=== PATIENT | female | born 1950 | race Caucasian/White ===

== ENCOUNTER 2016-10-25 16:33 | Emergency (ER) | payer OTHER ==
--- NOTE | ~2016-10-25 | CR72 ---
[facility] A Service of [facility] & [facility] RADIOLOGY TEXT RESULTS PATIENT: JULIA BRISCOE LOCATION: [facility] : 52 UNIT #: [id number] AGE: [address]: Sandip Hernández MD SEX: F ORDER DR: [id number] [facility] [address] [place], [place] [address] [id number] E MR#: [id number] Acc #: [id number] NAME: JULIA BRISCOE : 1950 SEX: F STUDY DATE/TIME: 10/25/2016 18:33 UNIT: [facility] ROOM: STUDY DESCRIPTION: CR Chest Single View Portable Attending Physician: Sandip Hernández M.D. Ordering Physician: Sandip Hernández M.D. Primary Care Physician: Primary Care Physician No MEDICAL IMAGING REPORT This report is preliminary unless electronic signature is present EXAM Portable chest HISTORY Respiratory failure. ETT placement FINDINGS ETT tip is 2.5 cm above the jose. Cardiac size and pulmonary vascularity are normal. No focal infiltrates. Calcified mediastinal nodes and mild pleural thickening in the lung apices. Dictated by... Oscar Schrader M.D. THIS IS AN ELECTRONICALLY VERIFIED REPORT Oscar Schrader M.D. at 10/26/2016 1:48 PM DFL/psc TD: 10/25/2016 23:04 JOB #: [id number] MEDICAL IMAGING REPORT Page 1 of 1 COPY
--- NOTE | ~2016-10-25 | CT71 ---
[facility] A Service of [facility] & [facility] RADIOLOGY TEXT RESULTS PATIENT: JULIA BRISCOE LOCATION: [facility] : 52 UNIT #: [id number] AGE: [address]: Sandip Hernández MD SEX: F ORDER DR: [id number] [facility] [address] [place], [place] [address] [id number] E MR#: [id number] Acc #: [id number] NAME: JULIA BRISCOE : 1950 SEX: F STUDY DATE/TIME: 10/25/2016 16:37 UNIT: [facility] ROOM: STUDY DESCRIPTION: CT Head Wo Contrast Attending Physician: Sandip Hernández M.D. Ordering Physician: Sandip Hernández M.D. Primary Care Physician: Primary Care Physician No MEDICAL IMAGING REPORT This report is preliminary unless electronic signature is present EXAM CT head without IV contrast COMPARISON December 25, 2015 INDICATIONS 66-year-old female found unresponsive today with hypotension. TECHNIQUE Axial CT imaging of the head was performed. This CT exam was performed with one or more of the following radiation dose reduction techniques: Automatic exposure control, adjustment of mA and/or kV according to patient size, and iterative reconstruction. FINDINGS Mastoid air cells, middle ears and visualized paranasal sinuses are well aerated. There is a healed fracture of the left frontal bone just above the left orbit, stable. There is mild cerebral and cerebellar volume loss. There appears to be increased hyperdensity along the sulci of the high parietal lobes anteriorly and bilaterally. Early small subarachnoid hemorrhage cannot be excluded. In the right cerebellar hemisphere, extending from the white matter and possibly involving the cortex, there appears to be a hyperdense lesion which was not appreciated previously measuring up to approximately 2.2 cm x 2.4 cm. This could represent intraparenchymal hemorrhage or possibly metastasis, or other neoplasm. There does appear to be mild mass effect in this location which appears new from November 2015. The fourth ventricle and perimesencephalic cisterns remain patent. The suprasellar cistern and other ventricles are patent. IMPRESSION 1. Apparent new hyperdensity along the sulci of the high bilateral anterior frontal lobes suggestive of early subarachnoid hemorrhage. [facility] A Service of [facility] & [facility] RADIOLOGY TEXT RESULTS PATIENT: JULIA BRISCOE LOCATION: [facility] : 52 UNIT #: [id number] AGE: [address]: Sandip Hernández MD SEX: F ORDER DR: 2. Hyperdense lesion in the right cerebellum involving the white matter and possibly extending to involve the cortex, measuring 2.2 cm x 2.4 cm. This appears to be having new mass effect on the adjacent extraaxial space. The fourth ventricle remains patent and the other ventricles are widely patent without midline shift. This could represent a metastasis or possibly a focal intraparenchymal hemorrhagic stroke. Given this finding and the findings over the parietal sulci, MRI brain with and without IV contrast is recommended for further characterization. Dictated by... Slava Gonzalez M.D. THIS IS AN ELECTRONICALLY VERIFIED REPORT Slava Gonzalez M.D. at 10/29/2016 8:29 AM CHAD/marlyn TD: 10/25/2016 20:49 JOB #: [id number] MEDICAL IMAGING REPORT Page 1 of 1 COPY
--- NOTE | ~2016-10-25 | CR72 ---
[facility] A Service of [facility] & [facility] RADIOLOGY TEXT RESULTS PATIENT: JULIA BRISCOE LOCATION: [facility] : 52 UNIT #: [id number] AGE: [address]: Sandip Hernández MD SEX: F ORDER DR: [id number] [facility] [address] [place], [place] [address] [id number] E MR#: [id number] Acc #: [id number] NAME: JULIA BRISCOE : 1950 SEX: F STUDY DATE/TIME: 10/25/2016 16:17 UNIT: [facility] ROOM: STUDY DESCRIPTION: CR Chest Single View Portable Attending Physician: Sandip Hernández M.D. Ordering Physician: Sandip Hernández M.D. Primary Care Physician: Primary Care Physician No MEDICAL IMAGING REPORT This report is preliminary unless electronic signature is present EXAM Portable chest HISTORY Shortness of air and hypotension today. FINDINGS Cardiac size and pulmonary vascularity are normal. No infiltrates or effusions. Mild left upper thoracic curve. Calcified mediastinal and right hilar nodes. Small, calcified granulomas in the right lower lung. IMPRESSION No acute findings and no active disease. No focal infiltrates. Dictated by... Oscar Schrader M.D. THIS IS AN ELECTRONICALLY VERIFIED REPORT Oscar Schrader M.D. at 10/25/2016 10:59 PM DFL/psc TD: 10/25/2016 19:45 JOB #: [id number] MEDICAL IMAGING REPORT Page 1 of 1 COPY
--- NOTE | ~2016-10-25 | EKG ---
PATIENT: JULIA BRISCOE UNIT #: [id number] Ventricular Rate: 110 BPM Atrial Rate: 110 BPM P-R Interval: 136 ms QRS Duration: 62 ms Q-T Interval: 344 ms QTC Calculation(Bezet): 465 ms P [place]: 69 degrees Calculated R [place]: -59 degrees Calculated T [place]: 57 degrees Diagnosis Line: Sinus tachycardia Diagnosis Line: Left axis deviation Diagnosis Line: Pulmonary disease pattern Diagnosis Line: Left ventricular hypertrophy Diagnosis Line: Abnormal ECG Diagnosis Line: When compared with ECG of 21-FEB-2016 12:47, Diagnosis Line: Nonspecific T wave abnormality, improved in Diagnosis Line: Anterolateral leads Diagnosis Line: Confirmed by DOMINGO DORMAN MD ([id number]) on 10/25/2016 Diagnosis Line: 10:57:05 PM INTERPRETING MD: LAKIA HAM
[2016-10-25 16:25] LABS: URINE SOURCE CLEAN CATCH
[2016-10-25 16:29] LABS: URINE APPEARANCE CLOUDY; URINE BLOOD 3+ (NEG); URINE COLOR DK YELLOW; URINE GLUCOSE NEG (NEG); URINE KETONE TRACE (NEG); URINE LEUKOCYTE ESTERASE TRACE (NEG); URINE NITRATE NEG (NEG); URINE PROTEIN 3+ (NEG); URINE SPECIFIC GRAVITY 1.025 (1.003-1.035)
[2016-10-25 16:32] LABS: URINE BACTERIA AUWI NEG (NEGATIVE); URINE SQUAMOUS EPITHELIAL CELL OCC /[HPF]; UWBCS1 AUWI 0-2 (0-5)
[~2016-10-25 16:33] MED LIST: ANTI-DIARRHEAL2 M1 PO; OXYCODONE HCL10 MG PO; PHENERGAN25 M1 PO; SYNTHROID88 MCG PO; XANAX2 MG PO
[2016-10-25 16:36] LABS: POC - CKMB 11.6 ng/mL (0.0-7.9); POC - TROPONIN <0.05 ng/mL (<=0.05)
[2016-10-25 16:36] LABS: BASOPHIL# 0.1 X10e3 (0-0.3); BASOPHIL% 0.4 % (0-2.5); HEMATOCRIT 46.9 % (35.0-45.0); HEMOGLOBIN 15.5 gm/dL (12.0-16.0); LYMPHOCYTE# 1.3 X10e3 (1.0-3.5); LYMPHOCYTE% 5.9 % (17.0-45.0); MEAN CELL VOLUME 95.1 FL (83-96); MEAN CORPUSCULAR HEMOGLOBIN 31.4 PG (28-34); MEAN PLATELET VOLUME 10.3 FL (6.5-11.5); MONOCYTE# 2.7 X10e3 (0-1.0); MONOCYTE% 12.2 % (3.0-12.0); NEUTROPHIL# 18.3 X10e3 (1.5-7.1); NEUTROPHIL% 81.5 % (40-75); PLATELET COUNT 148 X10e3 (140-420); RED BLOOD COUNT 4.93 X10e (3.90-5.30); RED CELL DISTRIBUTION WIDTH 18.6 % (11.0-15.5); WHITE BLOOD COUNT 22.5 X10e3 (4.0-10.5)
[2016-10-25 16:38] LABS: DIFF IND YES
[2016-10-25 16:42] LABS: INR 1.5; PARTIAL THROMBOPLASTIN TIME 25.4 SECONDS (23.5-31.3); PROTHROMBIN TIME (PATIENT) 15.6 SECONDS (9.6-11.5)
[2016-10-25 16:47] LABS: CULTURE INDICATED? NO; U HYALINE CASTS AUWI 0-2 /[LPF]; URINE BILIRUBIN NEG (NEG); URINE MUCUS PRESENT
[2016-10-25 16:52] LABS: ANISOCYTOSIS SL; PLATELET ESTIMATE NORMAL (NORMAL)
[2016-10-25 16:53] LABS: AMPHETAMINE NEG (NEG); BARBITURATES NEG (NEG); BENZODIAZEPINES POS (NEG); COCAINE NEG (NEG); MARIJUANA POS (NEG); OPIATES NEG (NEG); TRICYCLIC ANTIDEPRESSANTS NEG (NEG); U METHADONE POS (NEG)
[2016-10-25 16:58] LABS: ALBUMIN SERUM 3.1 g/dL (3.5-5.0); BILIRUBIN,INDIRECT 1.2 mg/dL (0.0-0.9); BILIRUBIN,TOTAL 2.2 mg/dL (0.2-2.0); BUN/CREATININE RATIO 16.17; CALCIUM SERUM 8.5 mg/dL (8.4-10.2); CREATININE SERUM 3.4 mg/dL (0.6-1.4); GLOM FILT RATE Estimated 13.5 mL/min (>60); POTASSIUM 4.4 mmol/L (3.5-5.1); PROTEIN TOTAL SERUM 6.3 g/dL (6.0-8.3)
== END 2016-10-25 19:26 | disposition hospice, home (50) ==
LOC: CED 16:33
PROVIDERS: Emergency Medicine
DX: R41.82 Altered mental status, unspecified (principal); I10 Essential (primary) hypertension; K72.90 Hepatic failure, unspecified without coma; K92.2 Gastrointestinal hemorrhage, unspecified; N19 Unspecified kidney failure; F17.200 Nicotine dependence, unspecified, uncomplicated; Z79.899 Other long term (current) drug therapy
CPT/HCPCS: 70450; 71010; 80048; 80076; 80307; 81003; 82140; 82550; 82553; 83605; 83690; 84484; 85025; 85610; 85730; 86850; 86900; 86901; 87040; 93005; 94002; 99291; 99292; C9113; G0480; J0330; J2354